=== PATIENT | female | born 1990 | race Caucasian/White ===

== ENCOUNTER 2016-08-18 15:50 | Emergency (ER) | payer SELFPAY ==
[~2016-08-18] VITALS: Wt 43.7 kg
--- NOTE | 2016-08-18 16:31 | NUR ---
Dr. Sharma at bedside assessing patient.
== END 2016-08-18 16:45 | disposition home or self-care (01) ==
LOC: ER 15:50
DX: S00.83XA Contusion of other part of head, initial encounter (principal); W22.8XXA Striking against or struck by other objects, initial encounter; Y93.89 Activity, other specified; Y99.8 Other external cause status; Y92.89 Other specified places as the place of occurrence of the external cause
CPT/HCPCS: 99281; A4663

== ENCOUNTER 2017-07-17 15:28 | Emergency (ER) | payer MEDICAID ==
[~2017-07-17] VITALS: Ht 160 cm; Wt 40.8 kg
--- NOTE | 2017-07-17 18:20 | NUR ---
MSE COMPLETED. PT D/C'D HOME, ACI GIVEN. PT AMBULATED W/O DIFF/TOOK ALL BELONGINGS.
[2017-07-17 18:21] VITALS: BP 118/74
== END 2017-07-17 18:22 | disposition home or self-care (01) ==
LOC: ER 15:28
DX: R51 Headache (principal); F41.9 Anxiety disorder, unspecified; Z88.2 Allergy status to sulfonamides
CPT/HCPCS: 70450; A4663

== ENCOUNTER 2018-01-01 10:30 | Emergency (ER) | payer SELFPAY ==
[~2018-01-01] VITALS: Ht 160 cm; Wt 45.4 kg
[2018-01-01] MEDS ORDERED: TETRACAINE HCL 0.5% OPHT DROP 2 ML BOTTLE ONE (11:13)
[2018-01-01] MEDS ORDERED: FLUORESCEIN SODIUM 1 MG STRIP ONE (11:14)
[2018-01-01] MEDS ORDERED: FLUORESCEIN SODIUM 1 MG STRIP OP ONE (11:15)
[2018-01-01] MEDS ORDERED: TETRACAINE HCL 0.5% OPHT DROP 2 ML BOTTLE OP ONE (11:15)
--- NOTE | 2018-01-01 12:01 | NUR ---
PT WAS EVALUATED BY DR PATTON. PT'S RIGHT EYE WAS IRRIGATED WITH NS 0.9% BY ALMA ROSA ALLEN, ACCORDING TO DR PATTON ORDER. PT TOLERATED TO PROCEDURE WITHOUT COMPLICATIONS.
--- NOTE | 2018-01-01 12:17 | NUR ---
PT WAS D/C TO HOME. D/C INSTRUCTIONS GIVEN TO THE PT. PT DENIES PAIN , DENIES ITCHING IN HER RIGHT EYE.
[2018-01-01 12:18] VITALS: BP 126/71
== END 2018-01-01 12:20 | disposition home or self-care (01) ==
LOC: ER 10:30
DX: H00.011 Hordeolum externum right upper eyelid (principal); Z88.2 Allergy status to sulfonamides
CPT/HCPCS: 99283; A4663; J7030